=== PATIENT | female | born 1955 | race Caucasian/White ===

== ENCOUNTER 2023-07-03 05:15 | Day surgery (SDC) | payer OTHER, MEDICARE ==
[2023-07-02 09:08] VITALS: BMI 23.1
[2023-07-03 10:00] VITALS: TEMP 97.2
[2023-07-03 13:19] VITALS: RESP 18
[2023-07-03 13:21] VITALS: BP 133/65; PULSE 55
== END 2023-07-03 10:43 | disposition home or self-care (01) ==
LOC: JASU-ENDO 05:15
PROVIDERS: ATTEND Internal Medicine Gastroenterology
PROC: 0DBL8ZX Excision of Transverse Colon, Via Natural or Artificial Opening Endoscopic, Diagnostic (ICD-10-PCS; principal; 2023-07-03 09:30)
DX: Z12.11 Encounter for screening for malignant neoplasm of colon (principal); D12.3 Benign neoplasm of transverse colon; K64.8 Other hemorrhoids; Z86.010 Personal history of colon polyps
CPT/HCPCS: 88305-TC